=== PATIENT | female | born 1970 | race Caucasian/White ===

== ENCOUNTER 2019-01-07 09:24 | Emergency (ER) | payer BC ==
[2019-01-07] MEDS ORDERED: Albuterol/Ipratropium 3.0-0.5 MG/3 ML Neb Soln ONE (09:29)
[2019-01-07] MEDS ORDERED: Albuterol/Ipratropium 3.0-0.5 MG/3 ML Neb Soln NEB ONE (09:33)
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
== END 2019-01-07 11:07 | disposition home or self-care (01) ==
LOC: MW.ED 09:24
DX: J98.01 Acute bronchospasm (principal); Z77.098 Contact with and (suspected) exposure to other hazardous, chiefly nonmedicinal, chemicals
CPT/HCPCS: 71045; 71045-26; 93005; 94640; 99283-25; J7620-GY

== ENCOUNTER 2021-01-07 14:37 | Emergency (ER) | payer SELFPAY ==
[2021-01-07] MEDS ORDERED: Sodium Chloride 0.9% 1,000 ML IV ONE (18:06)
[2021-01-07] MEDS ORDERED: Morphine 4 MG/ML Syringe IVPUSH ONE (18:07)
[2021-01-07] MEDS ORDERED: Ondansetron 4 MG/2 ML SDV ONE (18:26)
[2021-01-07] MEDS ORDERED: Ondansetron 4 MG/2 ML SDV IVPUSH ONE (18:26)
[2021-01-07 18:32] LABS: BLOOD UREA NITROGEN,BUN 22 mg/dL (7.0-18.0); CARBON DIOXIDE,CO2 23.6 mmol/L (21.0-32.0); CHLORIDE,CL 104 mmol/L (98-107); GLUCOSE RANDOM 86 mg/dL (74-106); LIPASE 104 U/L (73-393); POTASSIUM,K 3.9 mmol/L (3.5-5.1); SODIUM,NA 138 mmol/L (136-145)
[2021-01-07] MEDS ORDERED: Iopamidol 755 MG/ML 500 ML Multipack Bottle IVPUSH STA (19:13)
--- NOTE | 2021-01-07 19:52 | EDM.PDOC ---
<Brennen Alvarez - Last Filed: 01/07/21 19:51> ED HPI GENERAL MEDICAL PROBLEM - General Chief Complaint: General Stated Complaint: RECENT BLOOD WORK SHOWS PANCREAS TROUBLES Time Seen by Provider: 01/07/21 18:00 - History of Present Illness INITIAL COMMENTS - FREE TEXT/NARRATIVE: CHIEF COMPLAINT(S): Abdominal pain HISTORY OF PRESENT ILLNESS: This is a 50-year-old woman with a past medical history of obesity who comes to the emergency department with a chief complaint of abdominal pain. The patient states that for approximately 1 month now she has been experiencing epigastric abdominal pain. She states that she followed up with her primary care physician and they did some laboratory work. They stated that her pancreas was inflamed and have been following with her outpatient. They states that last week she saw some increased protein in her urine. She states that during this whole month she has been experiencing epigastric abdominal pain worsened by eating. She describes it as sharp without any radiation. She denies any associated nausea or vomiting but she states that any type of eating causes her to buckle over in pain. She states that she is started to have foul-smelling stools. She denies any relieving factors. She states that she is mainly concerned because she tried to eat this morning and had severe pain and came to the emergency department given the history of panc reatic inflammation REVIEW OF SYSTEMS: Constitutional: Denies fever, chills. Eyes: Denies eye pain Ears, Nose, Mouth, & Throat: Denies earache Cardiovascular: Denies chest pain Respiratory: Denies shortness of breath Gastrointestinal: Positive for abdominal pain in the epigastric region and foul- smelling stools. Denies nausea, vomiting, diarrhea, medic easier, melena, hematemesis, bilious emesis genitourinary: Denies hematuria Skin:Denies a rash MSK: Denies joint pain Neurological: Denies blurred vision Psychiatric: Denies depression PAST MEDICAL HISTORY: As per history of present illness and as reviewed below otherwise noncontributory. SURGICAL HISTORY: As per history of present illness and as reviewed below otherwise noncontributory. SOCIAL HISTORY: As per history of present illness and as reviewed below otherwise noncontributory. FAMILY HISTORY: As per history of present illness and as reviewed below otherwise noncontributory. EXAMINATION OF ORGAN SYSTEMS/BODY AREAS: Constitutional: Blood pressure was 137/70, heart rate 74, respiratory rate 18 with an oxygen saturation of 97 7% on room air. Temperature 36.6 General: Obese woman who is in no acute distress Psychiatric: Appropriate mood and affect. Eyes: No scleral icterus or conjunctival erythema ENMT: Moist mucous membranes. No pharyngeal erythema Cardiovascular: Regular, rate, and rhythm. No gallops, murmurs, or rubs. Bilateral upper extremity pulses symmetric and intact. No peripheral edema. No JVD. Respiratory: Lungs clear to auscultation bilaterally. No wheezes, rales, or rhonchi. Gastrointestinal: Soft, nondistended, tenderness to palpation in the epigastric region. No rebound or guarding. Negative Couch's and McBurney's. Normoactive bowel sounds. Genitourinary: No suprapubic tenderness Musculoskeletal: Normal range of motion. Skin: No lesions or abrasions. Neurological: Alert, GCS 15 MEDICAL DECISION MAKING AND COURSE IN THE ED WITH INTERPRETATION/REVIEW OF DIAGNOSTIC STUDIES: This is a 50-year-old woman with a past medical history of obesity who comes to the emergency department with acute epigastric abdominal pain associated with foul-smelling stools and outpatient laboratory work-up indicating pancreatic inflammation. At this time differential includes pancreatitis. Given that she is having severe pain with eating and she does not have a gallbladder pancreatic complication such as pancreatic pseudocyst versus peptic ulcer disease are on the differential. We will make the patient n.p.o. at this time. We will provide the patient with 1 L of normal saline and 4 mg of morphine for pain. We will provide her with 4 mg of IV morphine. Obtain CBC, CMP, lipase and obtain a CT abdomen pelvis with contrast. Laboratory: CBC reveals a leukocytosis of 11.39 with normal indices. CMP is unremarkable. Lipase is 104. Urinalysis is negative. At the time of signout the patient CT had been completed however had not been read. The patient was signed out pending this imaging and final disposition. DISPOSITION: Patient was signed out to oncoming night team physician pending imaging and final disposition CONDITION: Fair PROCEDURES: None FINAL IMPRESSION(S)/DIAGNOSES: 1. Acute epigastric abdominal pain, suspect pancreatitis Brennen Alvarez M.D. bilateral upper abdomen Pain Score (Numeric/FACES): 7 - Related Data Allergies Allergy/AdvReac Type Severity Reaction Status Date / Time No Known Allergies Allergy Verified 01/07/21 15:16 Home Meds: Home Meds Omeprazole Magnesium [Prilosec Otc] 20 mg PO BID #30 tablet. 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: Musculoskeletal History: Reports: None Neurological History: Reports: None Psychiatric History: Reports: None Endocrine/Metabolic History: Reports: None Hematologic History: Reports: None Immunologic History: Reports: None Oncologic (Cancer) History: Reports: None Dermatologic History: Reports: None - Infectious Disease History Infectious Disease History: Reports: None - Past Surgical History Head Surgeries/Procedures: Reports: None GI Surgical History: Reports: Cholecystectomy Social & Family History - Family History Family Medical History: No Pertinent Family History - Tobacco Use Tobacco Use Status *Q: Never Tobacco User Second Hand Smoke Exposure: No - Caffeine Use Caffeine Use: Reports: None - Alcohol Use Days Per Week of Alcohol Use: 1 Number of Drinks Per Day: 1 Total Drinks Per Week: 1 - Recreational Drug Use Recreational Drug Use: No ED ROS GENERAL - Review of Systems Review Of Systems: See Below ED EXAM, GENERAL - Physical Exam Exam: See Below Departure - Departure Disposition: Home, Self-Care 01 Clinical Impression: Abdominal pain - Discharge Information Instructions: Abdominal Pain, Adult Referrals: Gloria Santizo, CLOSING MACHINE OPERATOR [Primary Care Provider] - Forms: ED Department Discharge Additional Instructions: You were seen and evaluated in the ER today secondary to persistent abdominal discomfort. All the blood tests that we obtained were all within normal limits. Your urinalysis also was normal. CT scan of your abdomen/pelvis did not reveal any inflammation anywhere inside your abdomen that could cause the pain that you are having. At this time, the cause of your pain is unidentified however no acute abnormalities were identified that would need any emergent treatment at this time. Please make an appointment to follow-up with your doctor to get a referral to see either a marine fire fighter or a general surgeon to further evaluate your symptoms. They may opt to obtain either an endoscopy on you or other tests to help diagnose your symptoms. In the meantime, I would recommend starting Prilosec 20 mg twice a day for 2 weeks and then changing it to 20 mg daily. The following information is given to patients seen in the emergency department who are being discharged to home. This information is to outline your options for follow-up care. We provide all patients seen in our emergency department with a follow-up referral. The need for follow-up, as well as the timing and circumstances, are variable depending upon the specifics of your emergency department visit. If you don't have a primary care physician on staff, we will provide you with a referral. We always advise you to contact your personal physician following an emergency department visit to inform them of the circumstance of the visit and for follow-up with them and/or the need for any referrals to a consulting specialist. The emergency department will also refer you to a specialist when appropriate. This referral assures that you have the opportunity for follow-up care with a specialist. All of these measure are taken in an effort to provide you with optimal care, which includes your follow-up. Under all circumstances we always encourage you to contact your private physician who remains a resource for coordinating your care. When calling for follow-up care, please make the office aware that this follow-up is from your recent emergency room visit. If for any reason you are refused follow-up, please contact the [facility] Emergency Department at and asked to speak to the emergency department charge nurse. [facility] - Primary Care [address] [place] [id number] [place] [address] Sepsis Event Note (ED) - Evaluation Sepsis Screening Result: No Definite Risk <Julio Malone - Last Filed: 01/07/21 20:50> ED HPI GENERAL MEDICAL PROBLEM - History of Present Illness INITIAL COMMENTS - FREE TEXT/NARRATIVE: 8:46 PM: Signout received at 7 PM. Patient's labs including CBC, CMP, lipase, urinalysis were all within normal limits. CT scan of the abdomen pelvis did not show any significant pathology that would cause the patient's abdominal discomfort. Patient was reevaluated by me and at this time patient abdominal exam is relatively benign. Patient is some mild discomfort in the midepigastric region. Patient abdomen is otherwise soft, nondistended with no rebound or guarding. Patient does not present with signs or symptoms that would be consistent or concerning for an acute surgical abdomen. Patient reports that her pain increases after meals but has it at baseline at all times. It is unclear whether or not this might be secondary to a gastric ulcer. I will initiate therapy with Prilosec for the patient and have her follow-up with her primary care physician for referral to see a GI doctor or a general surgeon to get an endoscopy performed to further assist with diagnosing her pain. Abd: Soft, nondistended, no rebound/guarding, no psoas or obturator signs, no tenderness at Mcberney's point, no Couch's sign. Pt does not present with an exam that would be consistent with an acute surgical abdomen at this time. mild tenderness to palpation in the midepigastric region. Reassessment at the time of disposition demonstrates that the patient is in no acute distress. The patient has remained stable throughout the entire ED visit and is without objective evidence for acute process requiring urgent intervention or hospitalization. The patient is stable for discharge, counseling is provided as documented above, discussed symptomatic treatment and specific conditions for return. I have spoken with the patient/caregiver and discussed todays findings, in addition to providing specific details for the plan of care. Questions are answered and there is agreement with the plan. Course - Vital Signs Last Recorded V/S: Last Vital Signs Temp 97.6 F 01/07/21 18:22 Pulse 63 01/07/21 18:22 Resp 20 01/07/21 18:22 BP 159/86 H 01/07/21 18:22 Pulse Ox 98 01/07/21 18:22 - Orders/Labs/Meds Labs: Laboratory Tests 01/07/21 01/07/21 01/07/21 Range/Units 17:00 18:04 18:04 WBC 11.39 H (4.0-11.0) K/uL RBC 5.01 (4.30-5.90) M/uL Hgb 15.1 (12.0-16.0) g/dL Hct 43.9 (36.0-46.0) % MCV 87.6 (80.0-98.0) fL MCH 30.1 (27.0-32.0) pg MCHC 34.4 (31.0-37.0) g/dL RDW Std Deviation 43.9 (28.0-62.0) fl RDW Coeff of Albin 14 (11.0-15.0) % Plt Count 229 (150-400) K/uL MPV 10.10 (7.40-12.00) fL Neut % (Auto) 70.9 (48.0-80.0) % Lymph % (Auto) 22.4 (16.0-40.0) % [place] % (Auto) 5.4 (0.0-15.0) % Eos % (Auto) 1.1 (0.0-7.0) % Baso % (Auto) 0.2 (0.0-1.5) % Neut # (Auto) 8.1 H (1.4-5.7) K/uL Lymph # (Auto) 2.6 H (0.6-2.4) K/uL [place] # (Auto) 0.6 (0.0-0.8) K/uL Eos # (Auto) 0.1 (0.0-0.7) K/uL Baso # (Auto) 0.0 (0.0-0.1) K/uL Nucleated RBC % 0.0 /100WBC Nucleated RBCs # 0 K/uL Sodium 138 (136-145) mmol/L Potassium 3.9 (3.5-5.1) mmol/L Chloride 104 (98-107) mmol/L Carbon Dioxide 23.6 (21.0-32.0) mmol/L BUN 22 H (7.0-18.0) mg/dL Creatinine 0.8 (0.6-1.0) mg/dL Est Cr Clr Drug Dosing 77.38 mL/min Estimated GFR (MDRD) > 60.0 ml/min Glucose 86 (74-106) mg/dL Calcium 8.1 L (8.5-10.1) mg/dL Total Bilirubin 0.3 (0.2-1.0) mg/dL AST 24 (15-37) IU/L ALT 35 (14-63) IU/L Alkaline Phosphatase 83 (46-116) U/L Total Protein 7.6 (6.4-8.2) g/dL Albumin 3.6 (3.4-5.0) g/dL Globulin 4.0 (2.6-4.0) g/dL Albumin/Globulin Ratio 0.9 (0.9-1.6) Lipase 104 (73-393) U/L Urine Color YELLOW Urine Appearance CLEAR Urine pH 6.0 (5.0-8.0) Ur Specific [place] 1.025 (1.001-1.035) Urine Protein NEGATIVE (NEGATIVE) mg/dL Urine Glucose (UA) NEGATIVE (NEGATIVE) mg/dL Urine Ketones NEGATIVE (NEGATIVE) mg/dL Urine Occult Blood NEGATIVE (NEGATIVE) Urine Nitrite NEGATIVE (NEGATIVE) Urine Bilirubin NEGATIVE (NEGATIVE) Urine Urobilinogen 0.2 (<2.0) EU/dL Ur Leukocyte Esterase NEGATIVE (NEGATIVE) Meds: Medications Discontinued Medications Generic Name Dose Route Start Last Admin Trade Name Freq PRN Reason Stop Dose Admin Sodium Chloride 1,000 mls @ 1,000 mls/hr 01/07/21 18:06 01/07/21 18:23 Normal Saline IV 01/07/21 19:05 1,000 mls/hr .Bolus ONE Administration Iopamidol 100 ml 01/07/21 19:13 01/07/21 19:14 Iopamidol 755 Mg/Ml 500 Ml Multipack Bottle IVPUSH 01/07/21 19:14 100 ml ONETIME STA Administration Morphine Sulfate 4 mg 01/07/21 18:07 01/07/21 18:24 Morphine 4 Mg/Ml Syringe IVPUSH 01/07/21 18:08 4 mg ONETIME ONE Administration Ondansetron HCl 4 mg 01/07/21 18:26 01/07/21 18:27 Ondansetron 4 Mg/2 Ml Sdv IVPUSH 01/07/21 18:27 4 mg ONETIME ONE Administration Ondansetron HCl Confirm 01/07/21 18:26 01/07/21 18:28 Ondansetron 4 Mg/2 Ml Sdv Administered 01/07/21 18:27 Not Given Dose 4 mg .ROUTE .STK-MED ONE Departure - Departure Time of Disposition: 20:48 Condition: Good Sepsis Event Note (ED) - Focused Exam Vital Signs: Vital Signs Temp Pulse Resp BP Pulse Ox 01/07/21 18:22 97.6 F 63 20 159/86 H 98 01/07/21 17:57 98.3 F 66 20 159/108 H 97 01/07/21 15:12 97.8 F 74 18 137/70 97
--- NOTE | 2021-01-07 20:04 | CT ---
INDICATION: Epigastric pain. TECHNIQUE: CT abdomen and pelvis with intravenous contrast, 100 mL of Isovue-370. Coronal and sagittal reformats. COMPARISON: None available. FINDINGS: The imaged lower chest appears unremarkable. Normal liver contour. No suspicious hepatic lesion. Portal vein is patent. No biliary dilatation. Gallbladder surgically absent. The pancreas, spleen, and adrenals appear unremarkable. Symmetric renal enhancement. No hydronephrosis bilaterally. Unremarkable urinary bladder. Right adnexal 2.2 cm cystic-appearing lesion (series 201, image 137). The bowel appears normal in caliber and enhancement diffusely. Normal appendix. No free air, free fluid, focal collection, or lymphadenopathy. Normal caliber abdominal aorta with mild atherosclerotic calcification. Major branch vessels appear patent. No suspicious osseous lesion. Lower lumbar spondylosis. IMPRESSION: 1. No acute findings or CT correlate for abdominal pain definitively identified. 2. Gallbladder surgically absent. 3. Right adnexal 2.2 cm cystic lesion, likely physiologic in the premenopausal setting. Dictated by Emerson Gunn MD @ 01/07/2021 8:02:03 PM Please note that all CT scans at this facility use dose modulation, iterative reconstruction, and/or weight-based dosing when appropriate to reduce radiation dose to as low as reasonably achievable. Dictated by: Emerson Gunn MD @ 01/07/2021 20:02:12 (Electronically Signed)
== END 2021-01-07 20:54 | disposition home or self-care (01) ==
LOC: MW.ED 14:37
DX: R10.13 Epigastric pain (principal); R10.11 Right upper quadrant pain; R10.12 Left upper quadrant pain
CPT/HCPCS: 36415; 74177; 80053; 81003; 83690; 85025; 96374; 96375; 99284; J2270; J2405; J7030; Q9967

== ENCOUNTER 2021-02-18 08:43 | Day surgery (SDC) | payer OTHER ==
[~2021-02-18 08:43] MED LIST: Lactated Ringers 1,000 ML IV SCH; Sodium Chloride 0.9% 10 ML SDV IV PRN; Sodium Chloride 0.9% 10 ML Syringe FLUSH PRN; Sodium Chloride 0.9% 2.5 ML Syringe FLUSH PRN
--- NOTE | 2021-02-18 10:04 | PCM.PREANE ---
Preanesthetic Assessment - Procedure Proposed Procedure: EGD, Colonoscopy - Anesthesia/Transfusion/Family Hx Anesthesia History: Prior Anesthesia Without Reaction Other Type of Anesthesia Reaction Comment: "nausea after 2nd c/section, no problems since" Family History of Anesthesia Reaction: No Transfusion History: No Prior Transfusion(s) - Review of Systems General: No Symptoms Pulmonary: No Symptoms (Quit smoking x 12 yrs) Cardiovascular: No Symptoms Gastrointestinal: No Symptoms Neurological: No Symptoms Other: Reports: None - Physical Assessment NPO Status Date: 02/16/21 NPO Status Time: 19:00 (Solids, >8hrs Liq) Vital Signs: Last Vital Signs Temp 97.9 F 02/18/21 09:35 Pulse 60 02/18/21 09:35 Resp 15 02/18/21 09:35 BP 142/72 H 02/18/21 09:35 Pulse Ox 96 02/18/21 09:35 Height: 5 ft 5 in Weight: 146.964 kg (Morbid Obesity) ASA Class: 3 Mental Status: Alert & Oriented x3 Airway Class: Mallampati = 2 Dentition: Reports: Normal Dentition Thyro-Mental Finger Breadths: 3 Mouth Opening Finger Breadths: 3 ROM/Head Extension: Full Lungs: Clear to Auscultation, Normal Respiratory Effort Cardiovascular: Regular Rate, Regular Rhythm - Lab Values: Laboratory Last Values SARS-CoV-2 RNA ([facility]) NEGATIVE (NEGATIVE) 02/18/21 08:32 - Allergies Allergies/Adverse Reactions: Allergies Allergy/AdvReac Type Severity Reaction Status Date / Time chocolate flavor Allergy Hives Verified 02/05/21 08:26 oxycodone [From OxyContin] Allergy Hallucinati Verified 02/05/21 08:26 ons - Acknowledgements Anesthesia Type Planned: General Anesthesia Pt an Appropriate Candidate for the Planned Anesthesia: Yes Alternatives and Risks of Anesthesia Discussed w Pt/Guardian: Yes Pt/Guardian Understands and Agrees with Anesthesia Plan: Yes PreAnesthesia Questionnaire - Past Health History Medical/Surgical History: Denies Medical/Surgical History HEENT History: Reports: Macular Degeneration Other HEENT History: wears glasses Cardiovascular History: Reports: None Respiratory History: Reports: None Gastrointestinal History: Reports: Colon Polyp, GERD, Other (See Below) Other Gastrointestinal History: Hx colitis Genitourinary History: Reports: None FLASK FITTER History: Reports: Musculoskeletal History: Reports: Other (See Below) 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 Neurological History: Reports: None Psychiatric History: Reports: None Endocrine/Metabolic History: Reports: Obesity/BMI 30+ Hematologic History: Reports: None Immunologic History: Reports: None Oncologic (Cancer) History: Reports: None Dermatologic History: Reports: None - Infectious Disease History Infectious Disease History: Reports: None - Past Surgical History Head Surgeries/Procedures: Reports: None HEENT Surgical History: Reports: None Cardiovascular Surgical History: Reports: None Respiratory Surgical History: Reports: None GI Surgical History: Reports: Cholecystectomy, Colonoscopy, Hernia, Abdominal Female Surgical History: Reports: Section, Hysterectomy Endocrine Surgical History: Reports: None Neurological Surgical History: Reports: None Musculoskeletal Surgical History: Reports: Other (See Below) Other Musculoskeletal Surgeries/Procedures:: left elbow fusion Oncologic Surgical History: Reports: None Dermatological Surgical History: Reports: None - SUBSTANCE USE Tobacco Use Status *Q: Former Tobacco User Tobacco Use Within Last Twelve Months: No - HOME MEDS Home Medications: Home Meds Carboxymethylcellulose Sodium [Artificial Tears] 1 drop EYEBOTH ASDIRECTED PRN 02/05/21 [History] Ergocalciferol (Vitamin D2) [Vitamin D2] 10 mcg PO WEEKLY 02/05/21 [History] Fish Oil/[place]-3 Fatty Acids [Fish Oil 1,000 MG] 1,000 mg PO DAILY 02/05/21 [History] Pantoprazole Sodium [Protonix] 40 mg PO DAILY 02/05/21 [History] - CURRENT (IN HOUSE) MEDS Current Meds: Current Medications Lactated Ringer's (Ringers, Lactated) 1,000 mls @ 125 mls/hr IV ASDIRECTED [facility] Last Admin: 02/18/21 09:52 Dose: 125 mls/hr Documented by: Sodium Chloride (Sodium Chloride 0.9% 10 Ml Syringe) 10 ml FLUSH ASDIRECTED PRN PRN Reason: Keep Vein Open Sodium Chloride (Sodium Chloride 0.9% 2.5 Ml Syringe) 2.5 ml FLUSH ASDIRECTED PRN PRN Reason: Keep Vein Open Sodium Chloride (Sodium Chloride 0.9% 10 Ml Syringe) 10 ml FLUSH ASDIRECTED PRN PRN Reason: Keep Vein Open Sodium Chloride (Sodium Chloride 0.9% 2.5 Ml Syringe) 2.5 ml FLUSH ASDIRECTED PRN PRN Reason: Keep Vein Open Sodium Chloride (Sodium Chloride 0.9% 10 Ml Sdv) 10 ml IV ASDIRECTED PRN PRN Reason: IV Use
[2021-02-18] MEDS ORDERED: propofoL 50 ML ONE (10:24)
[2021-02-18] MEDS ORDERED: Lidocaine 2% 5 ML SDV ONE (10:24)
[2021-02-18] MEDS ORDERED: fentaNYL 100 MCG/2 ML SDV ONE (10:58)
[2021-02-18] MEDS ORDERED: Benzocaine 20% Topical Spray UD ONE (10:59)
--- NOTE | 2021-02-18 11:44 | PCM.OPNOTE ---
- General Post-Op/Procedure Note Date of Surgery/Procedure: 02/18/21 Operative Procedure(s): Diagnostic EGD and colonoscopy Findings: Normal appearing EGD and colonoscopy Pre Op Diagnosis: Abdominal pain, nausea, change in bowel habits Post-Op Diagnosis: Abdominal pain, nausea, change in bowel habits, diverticulosis Anesthesia Technique: GEOFFREY Primary Surgeon: Zakia Parra Condition: Good
--- NOTE | 2021-02-18 11:47 | PCM.POSTAN ---
POST ANESTHESIA ASSESSMENT - MENTAL STATUS Mental Status: Alert, Oriented - VITAL SIGNS Vital Signs: Last Vital Signs Temp 97.9 F 02/18/21 09:35 Pulse 60 02/18/21 09:35 Resp 15 02/18/21 09:35 BP 142/72 H 02/18/21 09:35 Pulse Ox 96 02/18/21 09:35 - RESPIRATORY Respiratory Status: Respiratory Rate WNL, Airway Patent, O2 Saturation Stable, Supplemental Oxygen - CARDIOVASCULAR CV Status: Pulse Rate WNL, Blood Pressure Stable - GASTROINTESTINAL GI Status: No Symptoms - POST OP HYDRATION Hydration Status: Adequate & Stable
--- NOTE | 2021-02-18 11:49 | PCM48HPAN ---
Post Anesthesia Note - EVALUATION WITHIN 48HRS OF ANESTHETIC Vital Signs in Normal Range: Yes Patient Participated in Evaluation: Yes Respiratory Function Stable: Yes Airway Patent: Yes Cardiovascular Function Stable: Yes Hydration Status Stable: Yes Pain Control Satisfactory: Yes Nausea and Vomiting Control Satisfactory: Yes Mental Status Recovered: Yes Vital Signs: Last Vital Signs Temp 98.4 F 02/18/21 11:39 Pulse 64 02/18/21 11:39 Resp 15 02/18/21 11:39 BP 93/48 L 02/18/21 11:39 Pulse Ox 96 02/18/21 11:39
--- NOTE | 2021-02-18 16:03 | OR ---
SURGEON: ZAKIA PARRA MD DATE OF PROCEDURE: 02/18/2021 PREOPERATIVE DIAGNOSES: Nausea, change in bowel habits. POSTOPERATIVE DIAGNOSES: Nausea, change in bowel habits, diverticulosis. PROCEDURE PERFORMED: Diagnostic esophagogastroduodenoscopy and colonoscopy. PRIMARY SURGEON: Zakia Parra MD ANESTHESIA: MAC. INSTRUMENTS USED: Olympus endoscope and colonoscope. EXTENT OF EXAM: To the second portion duodenum, to the cecum. PREPARATION: Good. LIMITATIONS: None. INDICATIONS FOR EXAMINATION: The patient is a 50-year-old female who presents with a change in her bowel habits as well as various abdominal complaints including nausea. The decision was made to proceed to the operating room and perform a diagnostic EGD and colonoscopy with biopsies. I explained the procedure, expected perioperative course, and risks. The patient verbalized understanding and wishes to proceed. PROCEDURE IN DETAIL: The patient was brought in to the endoscopy suite and placed in the left lateral decubitus position. A time-out was completed verifying the patient's name, age, date of , allergies, and procedure to be performed. A bite block was placed in the patient's mouth. Continuous oxygen was provided via face mask throughout the procedure. After adequate sedation was achieved, a well- lubricated endoscope was placed in the patient's mouth and advanced under direct visualization to the second portion of duodenum. This appeared normal and a photograph was taken. The scope was then fully withdrawn while examining the color, texture, anatomy, and integrity of mucosa of the upper GI tract. The duodenum showed no signs of inflammation or ulceration. A biopsy was taken in the duodenal bulb and sent to Pathology for histologic review. The scope was brought into the stomach. A photograph was taken of the pylorus as well as the GE junction. Both appeared anatomically normal. Biopsies were taken of the antrum, body, and fundus, and sent for histologic review and H pylori testing. The gastric mucosa was free of inflammation or ulceration. The scope was then brought into the distal esophagus. The Z-line appeared to be normal and a photograph was taken. A biopsy was taken 1 cm above the Z-line and sent to Pathology for histologic review. The remainder of the esophagus appeared normal. The scope was removed and this portion of procedure terminated. A digital rectal exam was performed. This exam was within normal limits. A well- lubricated colonoscope was inserted into the rectum and advanced under direct visualization to the level of the cecum. The cecum was identified by both visual and anatomic landmarks. A photograph was taken of the cecal cap; however, I was unable to retroflex the scope within the cecum due to looping of the scope more proximally. The scope was then fully withdrawn while examining the color, texture, anatomy, and integrity of the mucosa from the cecum to the anal canal. I was able to closely inspect the terminal ileum. This appeared normal with no signs of inflammation. The colonic mucosa was normal other than a few scattered diverticula in the second half of the colon. Random biopsies were taken of the cecum, ascending colon, transverse colon, descending colon, sigmoid colon, and rectum and sent to Pathology for histologic review. The scope was retroflexed within the rectum to visualize the anal canal opening. This appeared normal and a photograph was taken. The scope was then straightened out and fully withdrawn. The cecum to anus time was 11 minutes. The patient tolerated the procedure well and was transferred to the PACU in stable condition. ENDOSCOPIC DIAGNOSES: 1. Nausea. 2. Change in bowel habits. 3. Diverticulosis. RECOMMENDATIONS: We will follow up with the patient in clinic in two weeks to discuss her biopsy results. In the meantime, I will try dicyclomine as well as cholestyramine to see if I can control the patient's diarrhea and abdominal crampy pain. GARFIELD GARCIA /[id number]
== END 2021-02-18 12:30 | disposition home or self-care (01) ==
LOC: MW.SDS 08:43
PROVIDERS: ATTEND Surgery
DX: K57.30 Diverticulosis of large intestine without perforation or abscess without bleeding (principal); R11.0 Nausea; Z88.8 Allergy status to other drugs, medicaments and biological substances; Z91.018 Allergy to other foods; Z79.899 Other long term (current) drug therapy; Z90.49 Acquired absence of other specified parts of digestive tract; Z98.890 Other specified postprocedural states; Z87.891 Personal history of nicotine dependence; Z01.812 Encounter for preprocedural laboratory examination; Z20.822 Contact with and (suspected) exposure to COVID-19
CPT/HCPCS: 43239; 45380; 87635; 88305; A9270; J2704; J3010; J7120; 00813; U0002